=== PATIENT | female | born 1990 | race Caucasian/White ===

== ENCOUNTER 2021-01-01 15:58 | Inpatient (IN) | payer SELFPAY ==
[2021-01-01] VITALS (34 sets, daily range): BP systolic 124–176; BP diastolic 77–107
[~2021-01-01] VITALS: Ht 162.6 cm; Wt 79.2 kg
[2021-01-01] MEDS ORDERED: PRENTAB9 PO (16:35)
[2021-01-01] MEDS ORDERED: PENICILLIN G POTASSIUM IV 5 MU in D5W MINI-BAG PLUS 100 ML IV STA ×2 (16:52→19:27)
[2021-01-01] MEDS ORDERED: OXYTOCIN INJ 10 UNITS/ML VIAL (J2590) IM PRN (16:55)
[2021-01-01] MEDS ORDERED: LABETALOL 100MG/20ML VIAL IV ONE (16:55)
[2021-01-01] MEDS ORDERED: CARBOPROST TROMETHAMINE 250 MCG/ML AMP IM PRN (16:55)
[2021-01-01] MEDS ORDERED: OXYTOCIN DRIP 30 UNITS in IV 1 EA IV PRN ×4 (16:55)
[2021-01-01] MEDS ORDERED: TRANEXAMIC ACID INJection 1,000 MG in NS 100 ML IV PRN (16:55)
[2021-01-01] MEDS ORDERED: CALCIUM GLUCONATE 1,000 MG in D5W MINI-BAG PLUS 100 ML IV PRN (16:55)
[2021-01-01] MEDS ORDERED: LIDOCAINE 1% MDV 20ML VIAL INFIL PRN (16:55)
[2021-01-01] MEDS ORDERED: MAG Sulf (L&D) 4 GM/100 ML 4 GM in IV 1 EA IV ONE (16:55)
[2021-01-01] MEDS: LR 1,000 ML IV SCH (17:13)
[2021-01-01 17:16] LABS: HEMATOCRIT 38.2 % (36.0-47.0); HEMOGLOBIN 13.5 g/dl (12.0-15.5); MEAN CORPUSCULAR HEMOGLOBIN 32.1 pg (27.0-33.0); MEAN CORPUSCULAR HGB CONC 35.3 g/dl (32.0-36.5); PLATELET COUNT, AUTOMATED 145 10^3/uL (150-450)
[2021-01-01 17:38] LABS: CREATININE,RANDOM URINE 14.4 MG/DL; TOTAL PROTEIN,RANDOM URINE 42.1 MG/DL (0.0-12.0)
[2021-01-01 17:42] LABS: ALT/SGPT 31 U/L (12-78); BILIRUBIN,TOTAL 0.2 MG/DL (0.2-1.0); CREATININE FOR GFR 0.66 MG/DL (0.55-1.30); GLOMERULAR FILTRATION RATE > 60.0 (>60); LDH LACTATE DEHYDROGENASE 347 U/L (84-246); URIC ACID 4.7 MG/DL (2.6-6.0)
[2021-01-01] MEDS: MAG Sulf (OBGYN) 20GM/500ML 20,000 MG in IV 1 EA IV SCH (17:49)
[2021-01-01] MEDS ORDERED: BETAMETHASONE SOLUSPAN 6MG/ML 5ML VIAL (J0702 PER 3MG) IM ONE (19:05)
--- NOTE | 2021-01-01 19:14 | REP ---
INDICATION: Severe Pre eclampsia, growth, CRISTOBAL, cord dopplers. COMPARISON: None. TECHNIQUE: Transabdominal FINDINGS: Multiple ultrasonographic images of the gravid uterus shows a single living intrauterine gestation in the cephalic presentation. Doppler interrogation of the heart shows a heart rate of 142 beats per minute. The placenta is fundal and not low-lying. The cervix measures 3.8 cm in length and is closed. Doppler interrogation of the umbilical artery shows an A\B ratio of 3.5 and 3.4. These are within the normal range. The subjective amniotic fluid volume is within normal limits. The calculated amniotic fluid index is 11.3 with an expected range of 7.2-22.7. BPD: 8.2 cm 33 weeks 1 day HC: 30.0 cm 33 weeks 2 days AC: 25.3 cm 29 weeks 3 days FL: 6.4 cm 33 weeks 1 day The estimated weight is 1739 g which is less than the 3rd percentile for 38 week 6 day gestational age. IMPRESSION: Single living intrauterine gestation as described above with an estimated gestational age of 32 weeks 2 days via composite criteria and an estimated date of delivery of 02/24/2021 by today's exam. <Electronically signed by Al Figueredo > 01/01/21 191
--- NOTE | 2021-01-01 20:21 | HPE ---
HISTORY AND PHYSICAL DATE OF ADMISSION: 01/01/2021 HISTORY OF PRESENT ILLNESS: Jesi is a 30-year-old 9, para 8-0-0-8. She is 38 and 6/7 weeks gestation based on last menstrual period with an EDC of 01/09/2021. Her culture is of [employer] descent. She has not had any regular care during this . She has had one informal visit with a home piecer up. Last week she reports that her blood pressure was elevated and that she had no protein in her urine. She was seen by a carpet layer helper today with a reported elevated blood pressure and trace of protein in her urine. She denies any current headaches, visual disturbances, epigastric pain and right upper quadrant discomfort. She denies any pattern of regular painful contractions. There are some occasional [place]. She denies leakage of fluid and vaginal bleeding. The fetus has been active. She presents to labor and delivery today through the ER with a complaint of elevated blood pressure. OBSTETRIC HISTORY: 1. April 01, 2011, vaginal delivery 6 pound female, term, uncomplicated. 2. March 27, 2012, vaginal delivery, 6 pound female, term. No complications. 3. May 11, 2013, vaginal delivery, 7 pound 9 ounce male, term, no complications. 4. September 16, 2014, vaginal delivery, 7 pound female, term, no complications. 5. August 27, 2015, vaginal delivery, 7 pound 8 ounce female, term, no complications. 6. August 21, 2016, vaginal delivery, 7 pound male at term, no complications. 7. August 17, 2017, vaginal delivery, 7 pounds, term, male, no complications. 8. November 30, 2019, vaginal delivery, 7 pound 8 once male, term, no complications. LABORATORY DATA: There are no labs for review at this time. She reports that her last menstrual period was 04/05/2021. She reports that she had home test that she bought at the drug store and she was approximately eight weeks when she had a positive test some time in May of 2020. PAST MEDICAL HISTORY: Pyelonephritis. SURGICAL HISTORY: None. FAMILY HISTORY: Hypertension, diabetes, cancer, myocardial infarction. Of note, her biological sister within 20 minutes, reported as an aneurysm. SOCIAL HISTORY: She is , [employer], nonsmoker. No alcohol or drug use. No STDs. No abuse. ALLERGIES: No known drug allergies. MEDICATIONS: 1. Multivitamin. 2. Calcium. 3. Probiotic. EPO. PHYSICAL EXAMINATION: Upon arrival she has severe range blood pressure 190/115, 176/94. Her CBC with a hemoglobin of 13.5, hematocrit 38.2, platelets 145. Creatinine is 0.66. AST 39, ALT 31, LDH 347. Uric acid 4.7. Her spot urine is 2.9. heart rate is 130 with periods of minimal to moderate variability. She does have some occasional decelerations variable, late and early. Contractions are occasional. STERILE VAGINAL EXAM: 2 cm dilated, 50% effaced, -2 station She underwent a growth ultrasound. The fetus is cephalic. It measures 1739 gm, less than the third percentile for 38 and 6 days. It measures 32 and 2 and her CRISTOBAL is 11.3 cm. ASSESSMENT: Intrauterine at 38-6/7 weeks. heart rate category 2. Severe preeclampsia. Severe IUGR PLAN: Per consult with Dr. Llanes, magnesium sulfate for seizure prevention, betamethasone in case the fetus is actually premature, IV labetalol. She has been verbally consented for emergency surgery and blood products if they are necessary. Per consult with Dr. Llanes, plan AROM, Augment with IV pitoicn anticipate labor, and . MTDD
[2021-01-01] MEDS ORDERED: PENICILLIN G POTASSIUM IV 2.5 MU in IV 1 EA IV SCH ×2 (20:55→23:00)
[2021-01-01] MEDS ORDERED: OXYTOCIN DRIP 30 UNITS in IV 1 EA IV SCH (21:50)
[2021-01-02] VITALS (51 sets, daily range): BP systolic 106–164; BP diastolic 61–103
[2021-01-02] MEDS ORDERED: PERCOCET 5MG/325MG TAB PO PRN (01:10)
[2021-01-02] MEDS ORDERED: IBUPROFEN 800 MG TAB PO PRN (01:10)
[2021-01-02] MEDS ORDERED: RHOGAM 300 MCG (1500 IU) INJ (J2790) IM SCH (01:10)
[2021-01-02] MEDS ORDERED: MEASLES,MUMPS,RUBELLA VACCINE INJ (MMR-II) (90707) SC SCH (01:10)
[2021-01-02] MEDS ORDERED: DOCUSATE SODIUM 100MG CAPSULE PO PRN (01:10)
[2021-01-02] MEDS ORDERED: DIBUCAINE 1% OINTMENT 30GM TOP PRN (01:10)
[2021-01-02] MEDS ORDERED: ACETAMINOPHEN TAB 650MG DOSE (2X325MG) PO PRN (01:10)
[2021-01-02] MEDS ORDERED: IBUPROFEN 600MG TAB PO PRN (01:10)
[2021-01-02] MEDS: MAG Sulf (OBGYN) 20GM/500ML 20,000 MG in IV 1 EA IV SCH ×3 (03:59→22:55)
[2021-01-02 06:53] LABS: HEMATOCRIT 38.4 % (36.0-47.0); HEMOGLOBIN 13.3 g/dl (12.0-15.5); MEAN CORPUSCULAR HEMOGLOBIN 31.7 pg (27.0-33.0); MEAN CORPUSCULAR HGB CONC 34.6 g/dl (32.0-36.5); MEAN CORPUSCULAR VOLUME 91.4 fl (80.0-96.0); PLATELET COUNT, AUTOMATED 146 10^3/uL (150-450); WHITE BLOOD COUNT 9.3 10^3/uL (4.0-10.0)
[2021-01-02 08:02] LABS: ALT/SGPT 28 U/L (12-78); BILIRUBIN,TOTAL 0.2 MG/DL (0.2-1.0); CREATININE FOR GFR 0.78 MG/DL (0.55-1.30); GLOMERULAR FILTRATION RATE > 60.0 (>60); LDH LACTATE DEHYDROGENASE 293 U/L (84-246); MAGNESIUM LEVEL 7.1 MG/DL (1.8-2.4)
[2021-01-02] MEDS: LR 1,000 ML IV SCH (08:22)
[2021-01-02] MEDS: LABETALOL 200 MG TAB PO SCH (09:04)
[2021-01-02] MEDS: PRENATAL VITAMINS CHEWABLE TABLET PO SCH (09:04)
--- NOTE | 2021-01-02 09:13 | DN ---
DELIVERY NOTE DATE OF DELIVERY: 01/02/2021 TIME OF : GENDER: APGARS: LACERATIONS: ANESTHESIA: ESTIMATED BLOOD LOSS: COUNTS: DESCRIPTION OF DELIVERY: Jesi is a 30-year-old 9 para 9-0-0-9 now admitted to labor and delivery with severe preeclampsia and intrauterine growth restriction (IUGR). The decision was made to induce her. IV Pitocin was utilized as well as assisted rupture of membranes and labor did ensue. She coped with her labor physiologically. She reached complete dilation at 0041. She pushed to a normal spontaneous vaginal delivery of a live female in OA position with restitution to LOT position at 0043. There was no nuchal cord. The shoulders delivered spontaneously and the corpus immediately followed. The 's mouth and nares were both suctioned. She was placed on the maternal abdomen crying and active. The cord was clamped times 2 once pulsations ceased and cut by the father of the baby under my direction. Spontaneous expulsion of an intact placenta with three-vessel cord by Hutchison mechanism was at 0052. Trailing membranes were teased out with the sponge stick. Uterine hemostasis was achieved with IV Pitocin rapid infusion and uterine fundal massage. Estimated blood loss: 300 mL. Perineum and vagina inspected and noted to be intact. female weight is 1811 grams/4lb.. Apgars are 9 and 9. Mom is going to breast feed her daughter. The family has named her Chitra. The appears to be approximately 36-37 weeks gestation. At the end of delivery, lap counts and instruments counts were correct and verified. [facility]
[2021-01-02 09:59] LABS: HIV 1&2 SCREEN CENTAUR NEGATIVE (NEGATIVE)
[2021-01-03] VITALS (7 sets, daily range): BP systolic 112–151; BP diastolic 67–94
[2021-01-03] MEDS: LABETALOL 200 MG TAB PO SCH ×2 (09:00→20:37)
[2021-01-03] MEDS: PRENATAL VITAMINS CHEWABLE TABLET PO SCH (09:04)
--- NOTE | 2021-01-03 10:05 | IPNPDOC ---
Text Note Date of Service The patient was seen on 01/03/21. NOTE Progress note S: No complaints O: AVSS NAD Abd: NT, ff ext: NT A/P 30 yo PPD#1 s/p complicated by preeclampsia Labetalol 200 mg BID (Pt may refuse med) Off magnesium sulfate Plan to observe for BP stabilization VS,Fishbone, I+O VS, Fishbone, I+O Vital Signs Date Time Temp Pulse Resp B/P (MAP) Pulse Ox O2 Delivery O2 Flow Rate FiO2 01/03/21 09:00 63 133/85 (101) 01/03/21 06:00 98.9 16 01/02/21 23:31 97 Room Air I&O- Last 24 Hours up to 6 AM 01/03/21 05:59 Intake Total 5152 ml Output Total 5285 ml Balance -133 ml JAKI STEELE MD Jan 03, 2021 10:04
[2021-01-04 02:31] VITALS: BP 136/76
[2021-01-04 06:20] VITALS: BP 133/81
[2021-01-04] MEDS: PRENATAL VITAMINS CHEWABLE TABLET PO SCH (09:27)
[2021-01-04 09:28] VITALS: BP 144/97
[2021-01-04] MEDS: LABETALOL 200 MG TAB PO SCH (09:28)
== END 2021-01-04 15:08 | disposition home or self-care (01) | DRG 560 ==
LOC: M LDO 15:58 → M LDI 16:28 → M OBS 01-02 22:38
PROVIDERS: ADMIT Advanced Practice Midwife; ATTEND Advanced Practice Midwife
PROC: 3E033VJ Introduction of Other Hormone into Peripheral Vein, Percutaneous Approach (ICD-10-PCS; 2021-01-01)
PROC: 10907ZC Drainage of Amniotic Fluid, Therapeutic from Products of Conception, Via Natural or Artificial Opening (ICD-10-PCS; 2021-01-01)
PROC: 10E0XZZ Delivery of Products of Conception, External Approach (ICD-10-PCS; principal; 2021-01-02)
DX: O14.14 Severe pre-eclampsia complicating childbirth (principal); Z3A.38 38 weeks gestation of pregnancy; Z37.0 Single live birth; O36.5930 Maternal care for other known or suspected poor fetal growth, third trimester, not applicable or unspecified